=== PATIENT | female | born 1950 | race Caucasian/White ===

== ENCOUNTER → 2016-10-02 | Outpatient (CLI) | payer MEDICARE | END | disposition home or self-care (01) | LOC: PETCFH 08:20 | PROVIDERS: ATTEND Nurse Practitioner | DX: J43.8 Other emphysema (principal); I25.10 Atherosclerotic heart disease of native coronary artery without angina pectoris; M41.82 Other forms of scoliosis, cervical region | CPT/HCPCS: 78815; A9552 ==

== ENCOUNTER 2016-10-20 05:16 | Day surgery (SDC) | payer MEDICARE ==
[2016-10-19 10:49] LABS: ASPARTATE AMINO TRANSFERASE 24 U/L (15-37); BLOOD UREA NITROGEN 19 mg/dL (7-18)
[~2016-10-20] VITALS: Ht 172.7 cm; Wt 66.6 kg
[~2016-10-20 05:16] MED LIST: ASPI-515 PO; CINN500C2 PO; FLUO40CA2 PO; LACT1CAP35 PO; LEVO100T5 PO; LISI1TAB7 PO; METF10002 PO; OXYGEN NS; PANT40TA5 PO; SUCR1TAB PO; UMEC1DIS INH; VITA1TAB19 PO; [UNRECOGNIZED DRUG - REMARK] PO
[2016-10-20] MEDS ORDERED: LACTATED RINGERS 1,000 ML IV SCH (06:02)
[2016-10-20 06:26] VITALS: BP 109/76
[2016-10-20] MEDS ORDERED: MIDAZOLAM 1 MG/ML, 2ML ONE (07:16)
[2016-10-20] MEDS ORDERED: FENTANYL PF 100 MCG/2ML ONE ×2 (07:16→08:44)
[2016-10-20] MEDS ORDERED: ONDANSETRON 2MG/ML, 2ML ONE (07:42)
[2016-10-20] MEDS ORDERED: PROPOFOL 10 MG/ML, 20ML ONE (07:42)
[2016-10-20] MEDS ORDERED: OXYcodone 5 MG/5 ML ORAL.SOL UDC PO PRN (08:00)
[2016-10-20] MEDS ORDERED: LIDOCAINE 1%, 50ML ONE (08:00)
[2016-10-20] MEDS ORDERED: ONDANSETRON 2MG/ML, 2ML IVPush PRN (08:00)
[2016-10-20] MEDS ORDERED: LABETALOL 5MG/ML, 20ML IV PRN (08:00)
[2016-10-20] MEDS ORDERED: METOCLOPRAMIDE 5 MG/ML, 2ML IV PRN (08:00)
[2016-10-20] MEDS ORDERED: PROMETHAZINE 25 MG/ML, 1ML IV PRN (08:00)
[2016-10-20] MEDS ORDERED: HYDROmorphone 1 MG/ML, 1ML IV PRN (08:00)
[2016-10-20] MEDS ORDERED: FENTANYL PF 100 MCG/2ML IV PRN (08:00)
[2016-10-20] MEDS ORDERED: hydrALAzine 20 MG/ML, 1ML IV PRN (08:00)
[2016-10-20] MEDS ORDERED: ALBUTEROL SULFATE 2.5 MG/3 ML NPPB PRN (08:00)
== END 2016-10-20 10:15 | disposition home or self-care (01) ==
LOC: OUT 05:16
PROVIDERS: ATTEND Internal Medicine Critical Care Medicine
DX: C77.1 Secondary and unspecified malignant neoplasm of intrathoracic lymph nodes (principal); R91.8 Other nonspecific abnormal finding of lung field; J44.9 Chronic obstructive pulmonary disease, unspecified; I10 Essential (primary) hypertension; E11.9 Type 2 diabetes mellitus without complications; E03.9 Hypothyroidism, unspecified; F17.210 Nicotine dependence, cigarettes, uncomplicated; Z88.3 Allergy status to other anti-infective agents; Z91.013 Allergy to seafood; Z88.8 Allergy status to other drugs, medicaments and biological substances; K21.9 Gastro-esophageal reflux disease without esophagitis; F32.9 Major depressive disorder, single episode, unspecified; M19.90 Unspecified osteoarthritis, unspecified site; J96.11 Chronic respiratory failure with hypoxia
CPT/HCPCS: 31652; 36415; 80053; 82962; 88172; 88173; 88177; 88305; 88341; 88342; 93005; J2250; J2405; J2704; J3010; J3490; J7120; 31625; G0461

== ENCOUNTER → 2016-11-15 | Outpatient (CLI) | payer MEDICARE ==
[~2016-11-15] MED LIST changes: +GADOBUTROL 7.5 MMOL/7.5 ML VIAL ONE
== END | disposition home or self-care (01) ==
LOC: CFH 09:11
PROVIDERS: ATTEND Thoracic Surgery (Cardiothoracic Vascular Surgery)
DX: C34.11 Malignant neoplasm of upper lobe, right bronchus or lung (principal); I67.82 Cerebral ischemia; I63.9 Cerebral infarction, unspecified; R90.82 White matter disease, unspecified
CPT/HCPCS: 70553; A9585

== ENCOUNTER → 2017-03-07 | Outpatient (CLI) | payer MEDICARE ==
[~2017-03-07] MED LIST changes: -GADOBUTROL 7.5 MMOL/7.5 ML VIAL ONE
== END | disposition home or self-care (01) ==
LOC: ROC 06:40 → EDSTATUS 11:02
PROVIDERS: ATTEND Radiology Radiation Oncology
DX: C34.11 Malignant neoplasm of upper lobe, right bronchus or lung (principal)
CPT/HCPCS: 99212; G0463